=== PATIENT | male | born 1980 | race Caucasian/White ===

== ENCOUNTER 2021-06-23 16:49 | Emergency (ER) | payer BC ==
[~2021-06-23] VITALS: Ht 180.3 cm; Wt 97.7 kg
[2021-06-23 17:23] VITALS: BP 144/93
--- NOTE | 2021-06-23 17:58 | NUR ---
re tested with the pulse ox... pt. 97% RA.
== END 2021-06-23 19:07 | disposition home or self-care (01) ==
LOC: ER 16:50
DX: J02.9 Acute pharyngitis, unspecified (principal); Z20.822 Contact with and (suspected) exposure to COVID-19; R05 Cough; R51.9 Headache, unspecified; R19.7 Diarrhea, unspecified
CPT/HCPCS: 87635; 99283; C9803